=== PATIENT | female | born 1950 | race Caucasian/White ===

== ENCOUNTER 2017-05-02 22:06 | Emergency (ER) | payer MEDICARE ==
[2017-05-02 22:17] VITALS: BMI 29.7
[2017-05-02] MEDS ORDERED: Aspirin 325 mg EC Tablets PO STA (22:27)
[2017-05-02 22:28] VITALS: TEMP 98.1
[2017-05-02 22:36] LABS: BASO # 0.1 K/uL (0.0-0.2); BASO % 1.1 % (0.0-2.0); EOS # 0.2 K/uL (0.0-0.7); EOS % 2.4 % (0.0-4.0); HEMATOCRIT 38.9 % (34.0-47.0); LYMPH # 2.6 K/uL (1.0-4.3); LYMPH % 30.8 % (20.0-40.0); MEAN CELL VOLUME 86.9 fL (81.0-99.0); MEAN CORPUSCULAR HEMOGLOBIN 29.6 pg (27.0-31.0); MEAN CORPUSCULAR HGB CONC 34.1 g/dL (33.0-37.0); MEAN PLATELET VOLUME 7.9 fL (7.2-11.7); MONO # 0.8 K/uL (0.0-0.8); MONO % 8.8 % (0.0-10.0); RED CELL DISTRIBUTION WIDTH 13.4 % (11.5-14.5); WHITE BLOOD COUNT 8.5 K/uL (4.8-10.8)
[2017-05-02] MEDS ORDERED: Aspirin 325 mg EC Tablets PO ONE (22:42)
[2017-05-02 22:49] LABS: ALB/GLOB RATIO 1.4 (1.0-2.1); ALKALINE PHOSPHATASE 92 U/L (38-126); ALT/SGPT 24 U/L (9-52); AST/SGOT 19 U/L (14-36); BILIRUBIN,TOTAL 0.3 mg/dL (0.2-1.3); BLOOD UREA NITROGEN 15 mg/dL (7-17); CALCIUM 8.7 mg/dl (8.6-10.4); CARBON DIOXIDE 29 mmol/L (22-30); CHLORIDE 99 mmol/L (98-107); GFR AFRICAN-AMERICAN > 60; GLUCOSE,RANDOM 148 mg/dL (65-105); POTASSIUM 3.5 mmol/L (3.6-5.2); SODIUM 135 mmol/L (132-148); TOTAL PROTEIN 6.7 g/dL (6.3-8.3)
[2017-05-02 22:50] LABS: RBC URINE 24 /hpf (0-3); URINE BILIRUBIN NEGATIVE (NEGATIVE); URINE BLOOD 2+ (NEGATIVE); URINE COLOR Yellow (YELLOW); URINE GLUCOSE (UA) NORMAL (Normal); URINE KETONE NEGATIVE (NEGATIVE); URINE LEUKOCYTE ESTERASE NEG Leu/uL (Negative); URINE PROTEIN NEGATIVE (NEGATIVE); URINE UROBILINOGEN NORMAL mg/dL (0.2-1.0); WBC URINE 2 /hpf (0-5)
--- NOTE | 2017-05-02 23:06 | C.PDOC ---
History Of Present Illness felt brief palpitations after a full day of shopping, now feels tired and weak normal PO intake + anxiety about the holidays. 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 no h/o arrhythmias. asking for lidoderm patch for chronic lower back discomfort. Time Seen by Provider: 05/02/17 22:17 Chief Complaint (Nursing): Palpitations History Per: Patient, Family History/Exam Limitations: no limitations Onset/Duration Of Symptoms: Hrs Current Symptoms Are (Timing): Gone Initiating Event: denies: Upper Respiratory Illness, Out Of Medications, Exercising/Sports, Aspiration, Choking Exacerbating Factor(s): Other (abnormal exertion of shopping today). denies: Exertion Pain Scale Rating Of: 0 Associated Symptoms: denies: Fever, Chills, Sweating Past Medical History Vital Signs: Last Vital Signs Temp 98.1 F 05/02/17 23:15 Pulse 76 05/02/17 23:15 Resp 14 05/02/17 23:15 BP 154/79 H 05/02/17 23:15 Pulse Ox 99 05/02/17 23:15 - Medical History PMH: Bronchitis, HTN, Hypercholesterolemia, Hyperlipidemia Denies: Chronic Kidney Disease Surgical History: No Surg Hx Family History: States: No Known Family Hx - Social History Hx Tobacco Use: No Hx Alcohol Use: No Hx Substance Use: No - Immunization History Hx Tetanus Toxoid Vaccination: Yes Hx Influenza Vaccination: No Hx Pneumococcal Vaccination: No Review Of Systems Except As Marked, All Systems Reviewed And Found Negative. Physical Exam - Physical Exam Appears: Well Skin: Normal Color Head: Atraumatic, Normacephalic Neck: Normal Lymphatic: Deferred Chest: Symmetrical Cardiovascular: Rhythm Regular Respiratory: Normal Breath Sounds Neurological/Psych: Oriented x3 Gait: Steady ED Course And Treatment - Laboratory Results Result Diagrams: 05/02/17 22:33 05/02/17 22:33 Lab Interpretation: Normal (ua, trop, bnp, d-dimer neg.) ECG: Interpreted By Me ECG Rhythm: Sinus Rhythm ECG Interpretation: Normal Rate From EC O2 Sat by Pulse Oximetry: 97 Pulse Ox Interpretation: Normal - Radiology CXR: Interpreted by Me CXR Interpretation: Yes: No Acute Disease Reevaluation Time: 23:05 Reassessment Condition: Unchanged (remains asymptomatic since prior to arrival) Medical Decision Making Medical Decision Making: brief palpitations, 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 normal w/u and eval. probably more related to fatigue and anxiety about the holidays. Disposition Doctor Will See Patient In The: Office Counseled Patient/Family Regarding: Studies Performed, Diagnosis - Disposition Referrals: Domitila Henry MD [Staff Provider] - Disposition: HOME/ ROUTINE Disposition Time: 23:05 Condition: GOOD Additional Instructions: descmarlona come cornelius live. Sigue con Dr. Henry arlene necessario. Prescriptions: Lidocaine 5% [Lidoderm] 5 ea TP DAILY #1 patch Instructions: Palpitations (ED) Forms: Box (Setswana) Print Language: SINHALA - Clinical Impression Clinical Impression: Palpitations
[2017-05-02 23:16] VITALS: BP 154/79; PULSE 76; RESP 14
[2017-05-02 23:48] VITALS: O2SAT 97
--- NOTE | 2017-05-03 10:59 | RAD ---
PROCEDURE: CHEST RADIOGRAPH, 1 VIEW HISTORY: Shortness of breath COMPARISON: 05/12/2015. FINDINGS: LUNGS: The lungs are well inflated and clear. PLEURA: No pneumothorax or pleural fluid seen. CARDIOVASCULAR: Normal. OSSEOUS STRUCTURES: No significant abnormalities. VISUALIZED UPPER ABDOMEN: Normal. OTHER FINDINGS: None. IMPRESSION: No active pulmonary disease.
== END 2017-05-02 23:16 | disposition home or self-care (01) ==
LOC: C.ER 22:06
DX: R00.2 Palpitations (principal); I10 Essential (primary) hypertension; E78.00 Pure hypercholesterolemia, unspecified; E78.5 Hyperlipidemia, unspecified